=== PATIENT | male | born 1960 | race Caucasian/White ===

== ENCOUNTER 2017-05-27 09:54 | Day surgery (SDC) | payer BC, OTHER, SELFPAY ==
[~2017-05-27] VITALS: Ht 167.6 cm; Wt 91.6 kg
[~2017-05-27 09:54] MED LIST: ACAM0.05 PO; AMBI5TAB PO; AMLO2.5T PO; B-12100010 PO; BACL10TA2 PO; CIPR-249 PO; FOLI1TAB4 PO; FOLI5INJ2 SC; GABA-282 PO; GABA-283 PO; HYDR50TA70 PO; LIPI10TA PO; LISI10TA4 PO; LISIPOW; MIRT30TA2 PO; OMEP20CA3 PO; PRAZ2CAP PO; SF1.1GEL OR; VITA1CAP40 PO
[2017-05-27] MEDS: NS 1,000 ML IV ONE (11:00)
[2017-05-27] MEDS ORDERED: LIDOCAINE 2% INJ 100 MG/5 ML SDV (FOR ANES.) As Ordered ONE (11:49)
[2017-05-27] MEDS ORDERED: PROPOFOL 500 MG/50 ML VIAL As Ordered ONE (11:49)
--- NOTE | 2017-05-27 12:06 | ROOR ---
Patient Name: Jose Mcgovern Procedure Date: 05/27/2017 11:46 AM Date of : 1960 Age: 56 Room: [facility] Gender: Male Note Status: Finalized Procedure: Upper Endoscopy + Biopsies Indications: Epigastric abdominal pain, Nausea with vomiting Providers: Don Ferguson MD Referring MD: Paulette CURRY, Clinic Paulette CURRY [facility], Admin. Requesting Provider: Medicines: Monitored Anesthesia Care Complications: No immediate complications. Procedure: Pre-Anesthesia Assessment: - The heart rate, respiratory rate, oxygen saturations, blood pressure, adequacy of pulmonary ventilation, and response to care were monitored throughout the procedure. The Endoscope was introduced through the mouth, and advanced to the second part of duodenum. The upper GI endoscopy was accomplished without difficulty. The patient tolerated the procedure well. Findings: The Z-line was variable and was found 40 cm from the incisors. Diffuse mild inflammation characterized by congestion (edema) and erythema was found in the gastric antrum. Biopsies were taken with a cold forceps for Helicobacter pylori testing. The exam of the duodenum was otherwise normal. Impression: - Z-line variable, 40 cm from the incisors. - Chronic gastritis. Biopsied. - The examination was otherwise normal. Recommendation: - Patient has a contact number available for emergencies. The signs and symptoms of potential delayed complications were discussed with the patient. Return to normal activities tomorrow. Written discharge instructions were provided to the patient. - Discharge patient to home. - Continue present medications. - Await pathology results. - Telephone GI clinic for pathology results in 1 week. - Return to referring physician. - Check Portal Online for Path Results.([email or web address]) - The findings and recommendations were discussed with the patient's family. Dno Ferguson MD Don Ferguson MD 05/27/2017 12:06:23 PM This report has been signed electronically. Number of Addenda: 0 Note Initiated On: 05/27/2017 11:46 AM Estimated Blood Loss: Estimated blood loss: none.
--- NOTE | 2017-05-27 12:20 | ROOR ---
Patient Name: Jose Mcgovern Procedure Date: 05/27/2017 11:47 AM Date of : 1960 Age: 56 Room: [facility] Gender: Male Note Status: Finalized Procedure: Total Colonoscopy to Cecum Indications: Screening for colorectal malignant neoplasm Providers: Don Ferguson MD Referring [facility], Admin. Requesting Provider: Medicines: Monitored Anesthesia Care Complications: No immediate complications. Procedure: Pre-Anesthesia Assessment: - The heart rate, respiratory rate, oxygen saturations, blood pressure, adequacy of pulmonary ventilation, and response to care were monitored throughout the procedure. The Colonoscope was introduced through the anus and advanced to the cecum, identified by appendiceal orifice and ileocecal valve. The colonoscopy was performed without difficulty. The patient tolerated the procedure well. The quality of the bowel preparation was good. Findings: The perianal and digital rectal examinations were normal. Non-bleeding internal hemorrhoids were found during retroflexion. The hemorrhoids were small and Grade I (internal hemorrhoids that do not prolapse). Scattered small-mouthed diverticula were found in the recto-sigmoid colon, sigmoid colon and descending colon. The exam was otherwise without abnormality on direct and retroflexion views. Impression: - Non-bleeding internal hemorrhoids. - Diverticulosis in the recto-sigmoid colon, in the sigmoid colon and in the descending colon. - The examination was otherwise normal on direct and retroflexion views. - No specimens collected. - The exam was otherwise normal to the cecum. Recommendation: - Patient has a contact number available for emergencies. The signs and symptoms of potential delayed complications were discussed with the patient. Return to normal activities tomorrow. Written discharge instructions were provided to the patient. - High fiber diet. - Discharge patient to home. - Continue present medications. - Repeat colonoscopy in 10 years for screening purposes. - Return to referring physician. - The findings and recommendations were discussed with the patient's family. Don Ferguson MD Don Ferguson MD 05/27/2017 12:20:10 PM This report has been signed electronically. Number of Addenda: 0 Note Initiated On: 05/27/2017 11:47 AM Estimated Blood Loss: Estimated blood loss: none.
[2017-05-29 07:36] VITALS: BP 167/99
== END 2017-05-27 13:05 | disposition home or self-care (01) ==
LOC: M OPP 09:54
PROVIDERS: ATTEND Internal Medicine Gastroenterology
DX: Z12.11 Encounter for screening for malignant neoplasm of colon (principal); K64.0 First degree hemorrhoids; K57.30 Diverticulosis of large intestine without perforation or abscess without bleeding; R10.13 Epigastric pain; R11.2 Nausea with vomiting, unspecified; K22.8 Other specified diseases of esophagus; K29.50 Unspecified chronic gastritis without bleeding; F32.9 Major depressive disorder, single episode, unspecified; F41.9 Anxiety disorder, unspecified; I10 Essential (primary) hypertension; E78.00 Pure hypercholesterolemia, unspecified; K21.9 Gastro-esophageal reflux disease without esophagitis; G62.9 Polyneuropathy, unspecified; G47.30 Sleep apnea, unspecified; M51.36 Other intervertebral disc degeneration, lumbar region; H54.8 Legal blindness, as defined in USA; Z79.899 Other long term (current) drug therapy; Z87.820 Personal history of traumatic brain injury; Z86.59 Personal history of other mental and behavioral disorders

== ENCOUNTER 2020-08-02 11:30 | Emergency (ER) | payer OTHER ==
[~2020-08-02] VITALS: Ht 167.6 cm; Wt 92.0 kg
[~2020-08-02 11:30] MED LIST changes: -AMLO2.5T PO; +AMLO2.5T3 PO; +FOLI1TAB11 PO; -FOLI1TAB4 PO; -GABA-283 PO; +GABA-845 PO; +LISI10TA22 PO; -LISI10TA4 PO; +MIRT1TAB16 PO; -MIRT30TA2 PO; +OMEP1CAP73 PO; -OMEP20CA3 PO; -VITA1CAP40 PO; +VITA50005 PO
[2020-08-02] MEDS ORDERED: BOOSTRIX/ADACEL VACCINE (DIPHTH/PERTUSS/ACELL/TETANUS) 0.5ML SYR IM ONE (12:15)
[2020-08-02] MEDS ORDERED: LIDOCAINE 2% MDV 20ML VIAL SC ONE (12:15)
[2020-08-02] MEDS ORDERED: AUGM875T28 PO (12:46)
[2020-08-02 13:14] VITALS: BP 119/73
== END 2020-08-02 13:16 | disposition home or self-care (01) ==
LOC: M ED 11:30
DX: S01.312A Laceration without foreign body of left ear, initial encounter (principal); W01.198A Fall on same level from slipping, tripping and stumbling with subsequent striking against other object, initial encounter; Y92.003 Bedroom of unspecified non-institutional (private) residence as the place of occurrence of the external cause; Y93.9 Activity, unspecified; Y99.9 Unspecified external cause status; I10 Essential (primary) hypertension; G47.33 Obstructive sleep apnea (adult) (pediatric); F41.9 Anxiety disorder, unspecified; F33.9 Major depressive disorder, recurrent, unspecified; F43.10 Post-traumatic stress disorder, unspecified; Z79.899 Other long term (current) drug therapy

== ENCOUNTER 2023-09-11 07:59 | Day surgery (SDC) | payer OTHER ==
[~2023-09-11] VITALS: Ht 167.6 cm; Wt 78.8 kg
[2023-09-11] MEDS: NS 1,000 ML IV ONE (06:00)
[~2023-09-11 07:59] MED LIST changes: +AMLO1TAB25 PO; +APAP325T4 PO; +AUGM875T28 PO; +AZEL0.1S NARES; +BUSP10TA PO; +CO Q1CAP2 PO; +CYAN500T14 PO; +FERR32TA PO; +FLUT15.820; +GABA-284 PO; -GABA-845 PO; +GINS1CAP2 PO; +IBUP-1720 PO; +LIDOCAINE 2% 100MG/5ML SDV (FOR ANES.) As Ordered ONE; +LORA-243 PO; +MIRT1TAB17 PO; +OMEG10002 PO; +ROSU40TA4 PO; +THERTAB52 PO; +propofoL 200 MG/20 ML VIAL As Ordered ONE
[2023-09-11 09:29] VITALS: TEMP 97.7
[2023-09-11 09:45] VITALS: BP 124/71; O2SAT 96
== END 2023-09-11 10:19 | disposition home or self-care (01) ==
LOC: M OPP 07:59
PROVIDERS: ATTEND Surgery
DX: Z12.11 Encounter for screening for malignant neoplasm of colon (principal); D12.3 Benign neoplasm of transverse colon; D12.4 Benign neoplasm of descending colon; K57.30 Diverticulosis of large intestine without perforation or abscess without bleeding; K74.60 Unspecified cirrhosis of liver; K29.50 Unspecified chronic gastritis without bleeding